=== PATIENT | female | born 1990 | race Caucasian/White ===

== ENCOUNTER 2016-03-23 20:23 | Emergency (ER) | payer MEDICAID ==
[~2016-03-23] VITALS: Ht 172.7 cm; Wt 77.0 kg
[~2016-03-23 20:23] MED LIST: FLUC150T PO; SERT-132 PO; YAZ3TAB PO; ZOLO20CO PO
[2016-03-23 20:25] VITALS: BP 142/83; PULSE 133; RESP 18; TEMP 98.4; O2SAT 96
[2016-03-23] MEDS ORDERED: ZOLO50TA PO (21:20)
[2016-03-23] MEDS ORDERED: ETHI1TAB3 PO (21:20)
[2016-03-23] MEDS ORDERED: TRAM50TA PO (21:20)
[2016-03-23] MEDS ORDERED: SODIUM CHLOR 0.9% 1000 ML INJ 1,000 ML IV ONE ×2 (21:45)
[2016-03-23] MEDS ORDERED: KETOROLAC TROMETHAMINE 30 MG/ML (IVP) VIAL IV PUSH ONE (21:45)
--- NOTE | 2016-03-23 21:45 | PD ---
HPI Chief Complaint: Cold / Flu Symptoms Time Seen by Provider: 21:25 Travel History International Travel<30 days: No Contact w/Intl Traveler<30days: No Traveled to known affect area: No History of Present Illness HPI The patient is a 26-year-old female presents emergency department for 1 day history of cough and cold symptoms. The patient states her symptoms actually started 3 weeks ago with cold-like symptoms which appeared to get better, she never had a fever, but did have nasal congestion and left ear pain. However, earlier today the patient had a temperature of 102. The patient complains of a scratchy throat, left ear pain and congestion, nausea, diffuse myalgias, and lethargy. She also complains of intermittent abdominal pain described as crampy associated with some loose stool. She denies any vomiting. The patient does complain of mild dysuria, however, denies frequency, urgency , or vaginal discharge. The patient is currently on control, denies . The patient does have a history of previous diagnostic laparoscopy after her IUD perforated her uterus. The patient does have an 18 month old daughter at home and that cough and cold symptoms on New Year's Day. Symptoms are moderate, there are no alleviating or exacerbating factors. She has been taking Tylenol, however, that does not help her headache. She denies any associated photophobia or posterior neck pain. PFSH Past Medical History Depression: Yes Diminished Hearing: No Immunizations Current: Yes Influenza Vaccination: No ?: Not LMP: LAST WEEK : 2 Para: 1 Past Surgical History Other Surgery: Yes (lap mirena removal) Social History Alcohol Use: Yes (twice a week) Tobacco Use: No Substance Use: No Allergies-Medications (Allergen,Severity, Reaction): Coded Allergies: Augmentin (Verified Allergy, Unknown, 03/23/16) Penicillin (Verified Allergy, Unknown, 03/23/16) Reported Meds & Prescriptions Reported Meds & Active Scripts Active Reported Meaghan (Drospirenone-Ethinyl Estradiol) 3-0.02 Mg Tab 1 Tab PO DAILY Tramadol (Tramadol HCl) 50 Mg Tab 50 Mg PO Q6H PRN Zoloft (Sertraline HCl) 50 Mg Tab 75 Mg PO DAILY Review of Systems Except as stated in HPI: all other systems reviewed are Neg General / Constitutional: Positive: Fever Eyes: No: Photophobia HENT: Positive: Sore Throat, Earache, No: Lightheadedness Cardiovascular: No: Chest Pain or Discomfort Respiratory: No: Shortness of Breath Gastrointestinal: Positive: Nausea, Diarrhea, Abdominal Pain, No: Vomiting Genitourinary: Positive: Dysuria, No: Discharge, Vaginal Bleeding Musculoskeletal: Positive: Myalgias, Arthralgias Skin: No Rash Physical Exam Narrative GENERAL: Awake, alert, pleasant SKIN: Warm and dry. HEAD: Atraumatic. Normocephalic. EYES: Pupils equal and round. No scleral icterus. No injection or drainage. ENT: No nasal bleeding or discharge. Mild erythema no exudate. TMs are dull bilateral, however, the left TM is erythematous and bulging. NECK: Trachea midline. No JVD. No meningeal signs. CARDIOVASCULAR: Regular, tachycardic with a heart rate of 110. RESPIRATORY: No accessory muscle use. Clear to auscultation. Breath sounds equal bilaterally. GASTROINTESTINAL: Abdomen soft, non-tender, nondistended. No rebound tenderness. Back: No CVA tenderness. MUSCULOSKELETAL: No obvious deformities. No clubbing. No cyanosis. No edema. NEUROLOGICAL: Awake and alert. No obvious cranial nerve deficits. Motor grossly within normal limits. Normal speech. PSYCHIATRIC: Appropriate mood and affect; insight and judgment normal. Data Data Last Documented VS Vital Signs Date Time Temp Pulse Resp B/P Pulse Ox O2 Delivery O2 Flow Rate FiO2 03/23/16 20:25 98.4 133 18 142/83 96 Room Air Orders Group A Rapid Strep Screen (03/23/16 21:33) Influenzae A/B Antigen (03/23/16 21:33) Urinalysis - C+S If Indicated (03/23/16 21:33) Ed Urine Pregnancytest Poc (03/23/16 21:33) Sodium Chlor 0.9% 1000 Ml Inj (Ns 1000 M (03/23/16 21:45) Sodium Chlor 0.9% 1000 Ml Inj (Ns 1000 M (03/23/16 21:45) Ketorolac Inj (Toradol Inj) (03/23/16 21:45) Urine Culture (03/23/16 21:45) Strep Culture (Group A) (03/23/16 21:45) Labs Laboratory Tests Test 03/23/16 21:45 Urine Color YELLOW Urine Turbidity CLOUDY Urine pH 6.0 Urine Specific Doyle 1.029 Urine Protein TRACE mg/dL Urine Glucose (UA) NEG mg/dL Urine Ketones TRACE mg/dL Urine Occult Blood SMALL Urine Nitrite NEG Urine Bilirubin NEG Urine Urobilinogen LESS THAN 2.0 MG/DL Urine Leukocyte Esterase SMALL Urine RBC 9 /hpf Urine WBC 8 /hpf Urine Squamous Epithelial 2 /hpf Cells Urine Bacteria MOD /hpf Urine Mucus MANY /lpf Microscopic Urinalysis Comment CULTURE INDICATED MDM Medical Decision Making Medical Screen Exam Complete: Yes Emergency Medical Condition: Yes Medical Record Reviewed: Yes Interpretation(s) Laboratory Tests Test 03/23/16 21:45 Urine Color YELLOW Urine Turbidity CLOUDY Urine pH 6.0 Urine Specific Doyle 1.029 Urine Protein TRACE mg/dL Urine Glucose (UA) NEG mg/dL Urine Ketones TRACE mg/dL Urine Occult Blood SMALL Urine Nitrite NEG Urine Bilirubin NEG Urine Urobilinogen LESS THAN 2.0 MG/DL Urine Leukocyte Esterase SMALL Urine RBC 9 /hpf Urine WBC 8 /hpf Urine Squamous Epithelial 2 /hpf Cells Urine Bacteria MOD /hpf Urine Mucus MANY /lpf Microscopic Urinalysis Comment CULTURE INDICATED Date/Time Procedure Status Source Growth 03/23/16 21:45 Group A Streptococcus Screen ([facility]) - Final Complete Throat 03/23/16 21:45 Influenza Types A,B Antigen ([facility]) - Final Complete Nasal Aspirate NEGATIVE FOR FLU A AND B ANTIGEN.... 03/23/16 21:45 Group A Streptococcus Screen Received Throat Pending 03/23/16 21:45 Urine Culture Received Urine Clean Catch Pending Differential Diagnosis Differential diagnosis includes influenza, pneumonia, viral syndrome, otitis media, strep pharyngitis, gastroenteritis, meningitis, dehydration. Narrative Course IV was established and the patient was placed on cardiac telemetry monitoring and continuous pulse oximetry monitoring. Influenza screen was sent to lab. Bedside UA test was obtained and UA was sent to lab. Strep screen was sent to lab. The patient was administered 2 L of IV fluids and Toradol 30 mg intravenously. Diagnosis Primary Impression: Viral syndrome Additional Impressions: Otitis media Qualified Code: H66.002 - Acute suppurative otitis media of left ear without spontaneous rupture of tympanic membrane, recurrence not specified UTI (urinary tract infection) Qualified Code: N30.00 - Acute cystitis without hematuria Patient Instructions: General Instructions Additional Instructions: Medications as directed. Follow-up with your primary physician. Frequent hand washing at home. Return if symptoms worsen or progress. Med/Other Pt SpecificInfo: Prescription(s) given Scripts Sulfamethoxazole-Trimethoprim (Bactrim DS)800-160 Mg Tab1 Tab PO BID #14 TAB Ref 0 Prov:Alfonso Coffman MD 03/23/16 Disposition: 01 DISCHARGE HOME Condition: Stable Alfonso Coffman MD Mar 23, 2016 21:44
[2016-03-23 22:18] LABS: BACTERIA, URINE MOD /hpf; BLOOD, URINE SMALL (NEG); COMMENT (UR) CULTURE INDICATED; CULTURE IF INDICATED CULTURE INDICATED; GLUCOSE,URINE NEG (NEG); KETONE, URINE TRACE mg/dL (NEG); MUCUS URINE MANY /lpf (OCC); NITRITE,URINE NEG (NEG); SQUAMOUS EPITHELIAL CELL URINE 2 /hpf (0-5); URINE COLOR YELLOW (YELLW/STRAW)
[2016-03-23] MEDS ORDERED: BACT800T5 PO (22:30)
[2016-03-23] MEDS ORDERED: ACETAMINOPHEN 325 MG TAB PO ONE (22:45)
== END 2016-03-23 22:51 | disposition home or self-care (01) ==
LOC: NEPD 20:23
DX: B34.9 Viral infection, unspecified (principal); H66.002 Acute suppurative otitis media without spontaneous rupture of ear drum, left ear; N30.00 Acute cystitis without hematuria
CPT/HCPCS: 81001; 84703; 87081; 87086; 87804; 87880; 96361; 96374; 99283; J1885; J7030